=== PATIENT | female | born 1990 | race Caucasian/White ===

== ENCOUNTER 2024-04-09 09:48 | Outpatient (CLI) | payer OTHER, SELFPAY ==
--- NOTE | 2024-04-09 09:52 | US_ITS ---
PROCEDURE: US TRANSVAGINAL CLINICAL INDICATION: endometriosis COMPARISON: US PTV US PELVIS-TRANSVAGINAL ONLY from 10/19/2016 FINDINGS: Transvaginal sonographic images of the pelvis were obtained. UTERUS: Surgically absent The vaginal vault is intact There is a small hyperechoic nodule at the vaginal vault measuring 4.1 mm. There is a cystic fluid collection at the vaginal vault measuring 1.4 cm x 0.72 cm x 0.95 cm LEFT OVARY: 3.5cmx2.7 cmx1.9cm with a volume of 9ml. There are multiple small peripheral follicles. RIGHT OVARY: 4.6 cmx 2.7 cmx2.3cm with a volume of 15ml. There are multiple small peripheral follicles giving the ovary a polycystic appearance. Adjacent to the right ovary is a complex mass measuring 2.5 cm x 1.8 cm x 2.6 cm. Both ovaries are seen and appear normal. Doppler flow to both ovaries are seen. There is no fluid in the cul-de-sac. IMPRESSION: 1. The uterus is surgically absent. The vaginal cuff appears to be intact. There is a small hyperechoic nodule in the vaginal vault measuring 4.1 mm. 2. There is a cystic fluid collection at the vaginal vault measuring 1.4 cm in size. 3. Both ovaries are seen and appear polycystic. 4. Adjacent to the right ovary there appears to be a complex mass measuring 2.5 x 1.8 x 2.6 cm. 5. No fluid in the cul-de-sac. Dictated by: Yandel Roberts MD 04/09/2024 14:14 Yandel Roberts MD in OV 04/09/2024 14:14
== END 2024-04-09 23:59 | disposition home or self-care (01) ==
LOC: RAD 09:50
PROVIDERS: Visit Provider Nurse Practitioner Obstetrics & Gynecology
DX: R10.2 Pelvic and perineal pain (principal); Z90.710 Acquired absence of both cervix and uterus; Z87.42 Personal history of other diseases of the female genital tract
CPT/HCPCS: 76830

== ENCOUNTER 2024-08-01 09:28 | Outpatient (CLI) | payer OTHER, SELFPAY ==
--- OUTSIDE RECORDS SUMMARY | 2024-07-11 09:00 | XMS_ITS | Encounter Summary ---
Author Organization [place] [address] Care Team Providers Care Mold Mover Name Role Phone Oleksandr Mesa MD Primary Care Provider [phone] Reason for Visit * Reason Comments Annual Exam Encounter Details Date Type Department Care Team (Late Contact Info) Description 07/11/2024 9:00 AM EDT Office Visit [facility] [address] [place] [address] Oleksandr Mesa MD [address] [facility] [address] [place] [phone] Annual physical exam (Primary Dx); Screening for thyroid disorder Social History Tobacco Use Types Packs/Day Years Used Date Smoking Tobacco: Every Day Cigarettes 1 20.5 Started: 2004 Smokeless Tobacco: Never Alcohol Use Standard Drinks/Week Comments Yes 0 (1 standard drink = 0.6 oz pur e alcohol) rare PHQ-2 Answer Date Recorded PHQ-2 Total Score 0 07/11/2024 Comments No Sex and Gender Information Value Date Recorded Sex Assigned at Not on file Legal Sex Female 7:11 PM EDT Gender Identity Not on file Sexual Orientation Not on file documented as of this encounter Last Filed Vital Signs Vital Sign Reading Time Taken Comments Blood Pressure 110/70 07/11/2024 8:29 AM EDT Pulse 77 07/11/2024 8:29 AM EDT Temperature 36.5 C (97.7 F) 07/11/2024 8:29 AM EDT Respiratory Rate - - Oxygen Saturation 97% 07/11/2024 8:29 AM EDT Inhaled Oxygen Concentration - - Weight 64.4 kg (142 lb) 07/11/2024 8:29 AM EDT Height 172.7 cm (5' 8 ) 07/11/2024 8:29 AM EDT Body Mass Index 21.59 07/11/2024 8:29 AM EDT documented in this encounter Functional Status * Cognitive and Functional Status Question Answer Date of Assessment Author Is the person deaf or does h e/she have serious difficulty hearing? No 07/11/2024 8:23 AM EDT Diane Cedeno RMA Is the person blind or does he/she have serious difficulty seeing even when wearing glasses? No 07/11/2024 8:23 AM EDT Shelbie Cedeno RM A Does this person have seriou s difficulty walking or climbing stairs? No 07/11/2024 8:23 AM ED T Shelbie Cedeno RMA Does this person have diffic ulty dressing or bathing? No 07/11/2024 8:23 AM EDT Shelbie Cedeno RMA * Is the person deaf or does he/she have serious difficulty hearing? Answer Date of Assessment Author No 07/11/2024 8:23 AM EDT Diane Cedeno RMA * Is the person blind or does he/she have serious difficulty seeing even when wearing glasses? Answer Date of Assessment Author No 07/11/2024 8:23 AM Diane Johnson RMA * Does this person have serious difficulty walking or climbing stairs? Answer Date of Assessment Author No 07/11/2024 8:23 AM EDDiane Dumont RMA * Does this person have difficulty dressing or bathing? Answer Date of Assessment Author No 07/11/2024 8:23 AM EDT Diane Cedeno RMA * Because of a physical, mental or emotional condition, does this person have difficulty doing errands alone such as visiting a doctor's office or shopping? Answer Date of Assessment Author No 07/11/2024 8:23 AM Diane Johnson RMA * PHQ-9 Total Score Answer Date of Assessment Author 0 07/11/2024 8:24 AM SOUMYAT Diane Cedeno RMA * Question Answer Date of Assessment Author Little interest or pleasure in doing things 0 07/11/2024 8:24 AM EDT Shelbie Cedeno RMA Feeling down, depressed, or hopeless 0 06/15 8:24 AM EDT Shelbie Cedeno RMA PHQ-2 Total Score 0 07/11/2024 8:24 AM EDT Shelbie Cedeno RMA * Question Answer Date of Assessment Author Feeling Nervous, Anxious, or on Edge 0 06/15 8:23 AM EDT Shelbie Cedeno RMA Not Being Able to Stop or Co ntrol Worrying 0 07/11/2024 8:23 AM EDT Shelbie Cedeno RMDiane Worrying too Much About Diff erent Things 0 07/11/2024 8:23 AM EDT Shelbie Cedeno RMA Trouble Relaxing 0 07/11/2024 8:23 AM EDT Helena eyers, Shelbie RMA Being so Restless That it is Hard to Sit Still 0 07/11/2024 8:23 AM EDT Shelbie Cedeno RMDiane Becoming Easily Annoyed or Irritable 0 06/15 8:23 AM EDT Shelbie Cedeno RMA Feeling Afraid as if Somethi ng Awful Might Happen 0 07/11/2024 8:23 AM EDT Shelbie Cedeno RMA EDGAR-7 Total Score 0 07/11/2024 8:23 AM EDT Shelbie Cedeno RMA documented as of this encounter Mental Status * Cognitive and Functional Status Question Answer Entry Date Author Because of a physical, menta l or emotional condition, does this person have difficulty doing errands alone such as visiting a doctor's office or shopping? No 07/11/2024 8:23 AM EDT Shelbie Cedeno RMA Because of a physical, menta l or emotional condition, does this person have serious difficulty concentrating, remembering or making decisions? No 07/11/2024 8:23 AM EDT Shelbie Miller RMA * Because of a physical, mental or emotional condition, does this person have serious difficulty concentrating, remembering or making decisions? Answer Entry Date Author No 07/11/2024 8:23 AM EDT Diane Cedeno RMA documented in this encounter Progress Notes * Oleksandr Mesa MD - 07/11/2024 9:00 AM EDT Vitals: 07/11/24 0829 BP: 110/70 Pulse: 77 Temp: 97.7 ??F (36.5 ??C) TempSrc: Temporal SpO2: 97% Weight: 142 lb (64.4 kg) Height: 5' 8 (1.727 m) Body mass index is 21.59 kg/m??. SUBJECTIVE: Chief Complaint Patient presents with Annual Exam HPI: Well Adult: Subjective Ms. Mathews is a 34 y.o. female here for an annual wellness visit. Diet: ok Exercise: some Activities of Daily Living: Functional Level: Self-care ADL Limitations: none Social Interaction Screen: Do you have concerns about issues that may impact social interaction such as developmental or behavioral/mental health conditions? no Health Maintenance Due Topic Date Due Pneumococcal Vaccine 0-49 (1 of 2 - PCV) Never done Hepatitis B Vaccine (1 of 3 - 19+ 3-dose series) Never done Annual Wellness Exam 02/11/2023 COVID-19 Vaccine ( - season) Never done DTaP/TDaP/Td (2 - Td or Tdap) 03/08/2024 Health Maintenance Topic Date Due Pneumococcal Vaccine 0-49 (1 of 2 - PCV) Never done Hepatitis B Vaccine (1 of 3 - 19+ 3-dose series) Never done Annual Wellness Exam 02/11/2023 COVID-19 Vaccine ( - season) Never done DTaP/TDaP/Td (2 - Td or Tdap) 03/08/2024 Influenza Vaccine (Season Ended) 2024 Meningococcal B Vaccine Aged Out Immunization History Administered Date(s) Administered Tdap 03/08/2014 Patient Active Problem List Diagnosis Depression Hypothyroidism due to acquired atrophy of thyroid Tobacco abuse Migraine Insomnia, persistent Right wrist pain Ganglion Cylindroma of skin Past Medical History: Diagnosis Date Depression Hypothyroidism due to acquired atrophy of thyroid 08/22/2014 Post-operative nausea and vomiting mild Past Surgical History: Procedure Laterality Date DENTAL SURGERY top teeth removed 2012 HYSTERECTOMY, TOTAL 2015 ovaries intact PELVIC LAPAROSCOPY for endometriosis WRIST GANGLION EXCISION Right 03/24/2022 right wrist excision of dorsal ganglion cyst; Surgeon: Wesley Prasad MD; Location: [facility]; Service: Hand Allergies Allergen Reactions Latex Rash Current Outpatient Medications on File Prior to Visit Medication Sig Dispense Refill ascorbic acid (VITAMIN C ORAL) Take 500 mg by mouth daily. ferrous sulfate (IRON ORAL) Take by mouth daily. ipratropium (ATROVENT) 42 mcg (0.06 %) Nasl [place], Non-Aerosol 2 Sprays by Nasal route 3 times daily. 13 mL 0 multivitamin with minerals (DAILY MULTIVITAMIN-MINERALS ORAL) Take by mouth daily. Zackery UNABLE TO FIND daily. Med Name: MULLEIN ORAL 500 mg VIT C-ZINC CITRATE-ELDERBERRY ORAL Take by mouth as needed. No current facility-administered medications on file prior to visit. Social History Socioeconomic History Marital status: Spouse name: None Number of children: None Years of education: None Highest education level: None Tobacco Use Smoking status: Every Day Current packs/day: 1.00 Average packs/day: 1 pack/day for 20.4 years (20.4 ttl pk-yrs) Types: Cigarettes Start date: 2004 Smokeless tobacco: Never Vaping Use Vaping status: Former Substance and Sexual Activity Alcohol use: Yes Comment: rare Drug use: No Family History Problem Relation Age of Onset High Blood Pressure Mother Migraines Mother Cancer Maternal Uncle Cancer Maternal Grandmother High Blood Pressure Maternal Grandmother Migraines Maternal Grandmother High Blood Pressure Maternal Grandfather Stroke Paternal Grandfather Anesth Problems Neg Hx No results found. No results found for this visit on 07/11/24. Patient Care Team: Oleksandr Mesa MD as PCP - General Lab Results Component Value Date WBC 8.5 12/01/2023 HGB 14.1 12/01/2023 HCT 42.8 12/01/2023 PLT 314 12/01/2023 CHOLESTEROL 185 12/01/2023 TRIG 78 12/01/2023 HDL 38 (L) 12/01/2023 LDLCALC 132 (H) 12/01/2023 ALT 22 12/01/2023 AST 16 12/01/2023 NA 139 12/01/2023 K 3.4 (L) 12/01/2023 CL 103 12/01/2023 CREATININE 0.86 12/01/2023 BUN 7 12/01/2023 CO2 25 12/01/2023 TSH 0.557 01/07/2020 INR 1.1 01/27/2010 GLU 96 12/01/2023 TSHREFLEX 0.946 12/01/2023 Additional issues addressed today: Review of Systems Constitutional: Negative for activity change, appetite change, fatigue and fever. HENT: Negative for facial swelling, trouble swallowing and voice change. Respiratory: Negative for cough, chest tightness, shortness of breath and wheezing. Cardiovascular: Negative for chest pain, palpitations and leg swelling. Endocrine: Negative for cold intolerance and heat intolerance. Genitourinary: Negative for difficulty urinating and frequency. Musculoskeletal: Negative for arthralgias, joint swelling and neck stiffness. Skin: Negative for color change and rash. Neurological: Negative for dizziness, speech difficulty, weakness and light-headedness. Psychiatric/Behavioral: Negative for agitation, confusion, hallucinations and suicidal ideas. The patient is not nervous/anxious. OBJECTIVE: Physical Exam Vitals and nursing note reviewed. Constitutional: Appearance: She is well-developed. HENT: Head: Normocephalic and atraumatic. Nose: Nose normal. Eyes: Conjunctiva/sclera: Conjunctivae normal. Pupils: Pupils are equal, round, and reactive to light. Neck: Thyroid: Thyromegaly present. No thyroid mass or thyroid tenderness. Cardiovascular: Rate and Rhythm: Normal rate and regular rhythm. Heart sounds: Normal heart sounds. No murmur heard. Pulmonary: Effort: Pulmonary effort is normal. Breath sounds: Normal breath sounds. No stridor. Abdominal: General: There is no distension. Palpations: Abdomen is soft. Tenderness: There is no abdominal tenderness. Musculoskeletal: General: Normal range of motion. Cervical back: Normal range of motion. Right lower leg: No edema. Left lower leg: No edema. Comments: Moves all 4 extremities well Skin: General: Skin is warm. Findings: No rash. Comments: Normal nails Neurological: General: No focal deficit present. Mental Status: She is alert and oriented to person, place, and time. Mental status is at baseline. Psychiatric: Mood and Affect: Mood normal. Behavior: Behavior normal. Assessment & Plan Annual physical exam Discussed with patient Blood work today Follow up one year Orders: COMPREHENSIVE METABOLIC PANEL; Future CBC WITH DIFF; Future LIPID PANEL REFLEX; Future THYROID STIMULATING HORMONE; Future IRON LEVEL; Future MAGNESIUM LEVEL; Future Screening for thyroid disorder Blood work today Orders: THYROID STIMULATING HORMONE; Future T4, FREE (THYROXINE); Future Shelbie Barker, RMA, am functioning as the scribe for, and as dictated by Oleksandr Mesa MD Login: 07/11/24, 8:43 AM I have reviewed this note and it acurately reflects my work and decisions made during this visit. Oleksandr Mesa MD * Reny Burris - 07/11/2024 9:00 AM EDT Venous collection 21 G x 1-1/4 Attempt x 1 RAC Patient tolerated well documented in this encounter Plan of Treatment Not on file documented as of this encounter Goals Goal Patient Goal Type Associated Problems Recent Progress Patient-Stated? Author Maintain a healthy diet, exercise regularly and maintain an ideal body weight General No Maryellen Tapia MA Stay Tobacco Free Lifestyle No Maryellen Tapia MA documented as of this encounter Procedures Procedure Name Priority Date/Time Associated Diagnosis Comments LIPID PANEL REFLEX Routine 07/11/2024 8: 43 AM EDT Annual physical exam CBC WITH DIFF Routine 07/11/2024 8:43 AM EDT Annual physical exam THYROID STIMULATING HORMONE Routine 07/11/2024 8:43 AM EDT Annual physical exam Screening for thyroid disorder T4, FREE (THYROXINE) Routine 07/11/2024 8:43 AM EDT Screening for thyroid disorder MAGNESIUM LEVEL Routine 07/11/2024 8:43 AM EDT Annual physical exam IRON LEVEL Routine 07/11/2024 8:43 AM EDT Annual physical exam COMPREHENSIVE METABOLIC PANEL Routine 07/11/2024 8:43 AM EDT Annual physical exam documented in this encounter Results * MAGNESIUM LEVEL (07/11/2024 8:43 AM EDT) Magnesium 2.1 1.6 - 2.4 mg/dL 07/11/2024 1:14 PM EDT [facility] [employer] Blood VENOUS BLOOD / Unknown Venipuncture / Unknown 07/11/2024 8:43 AM EDT 07/11/2024 8:43 AM EDT Oleksandr Mesa MD CHEMISTRY ORDERABLES Final R esult Performing Organization Address [facility] Co de Phone Number [facility] [employer] [address] [place] [address] , [place] [address] * IRON LEVEL (07/11/2024 8:43 AM EDT) Iron 41 30 - 160 mcg/dL 07/11/2024 1:14 PM EDT [facility] [employer] Blood VENOUS BLOOD / Unknown Venipuncture / Unknown 07/11/2024 8:43 AM EDT 07/11/2024 8:43 AM EDT Oleksandr Mesa MD CHEMISTRY ORDERABLES Final R esult Performing Organization Address [facility] de Phone Number [facility] [employer] [address] , [place] [address] * T4, FREE (THYROXINE) (07/11/2024 8:43 AM EDT) Free T4 1.07 0.80 - 1.80 ng/dL 07/11/2024 1:14 PM EDT [facility] [employer] Blood VENOUS BLOOD / Unknown Venipuncture / Unknown 07/11/2024 8:43 AM EDT 07/11/2024 8:43 AM EDT Narrative [facility] [employer] - 07/11/2024 1:14 PM EDT Ingestion of tor doses of biotin (>5 mg/day) taken within 8 hours of drawing blood sample can interfere with this immunoassay test. Oleksandr Mesa MD CHEMISTRY ORDERABLES Final R [facility] Performing Organization Address [facility] de Phone Number [facility], [address] , [place] [address] * THYROID STIMULATING HORMONE (07/11/2024 8:43 AM EDT) Pathologist [facility] TSH 0.977 0.270 - 4.200 mcIU/mL 07/11/2024 1:14 PM EDT [facility] [employer] Blood VENOUS BLOOD / Unknown Venipuncture / Unknown 07/11/2024 8:43 AM EDT 07/11/2024 8:43 AM EDT Narrative [facility] [employer] [facility] - 07/11/2024 1:14 PM EDT Ingestion of tor doses of biotin (>5 mg/day) taken within 8 hours of drawing blood sample can interfere with this immunoassay test. us Oleksandr Mesa MD CHEMISTRY ORDERABLES Final R esult [facility] [employer] [address] , [place] [address] * (ABNORMAL) LIPID PANEL REFLEX (07/11/2024 8:43 AM EDT) [facility] Cholesterol 153 <200 mg/dL 07/11/2024 1:14 PM EDT [facility] Comment: < 200 Desirable 200 - 239 Borderline High >= 240 High Triglyceride 96 <150 mg/dL 07/11/2024 1:14 PM EDT [facility] Comment: < 150 Normal 150 - 199 Borderline High 200 - 499 High >= 500 Very High HDL 33(L) >=40 mg/dL 07/11/2024 1:14 PM EDT [facility] Comment: > 60 Optimal 40 - 60 Acceptable < 40 Low LDL Calculated 102(H) <100 mg/dL 07/11/2024 1:14 PM EDT [facility] Comment: < 100 Optimal 100 - 129 Near or above optimal 130 - 159 Borderline High 160 - 189 High >= 190 Very High The National Institutes of Health (NIH) equation is used for all lipid panels that report calculated LDL (LDL-C). Non-HDL-C Calculated 120 <=129 mg/dL 07/11/2024 1:14 PM EDT [facility] Comment: <130 Desirable 130-159 Above Desirable 160-189 Borderline High 190-219 High >= 220 Very High Fasting Specimen? Yes None 025 1:14 PM EDT [facility] Blood VENOUS BLOOD / Unknown Venipuncture / Unknown 07/11/2024 8:43 AM EDT 07/11/2024 8:43 AM EDT us Oleksandr Mesa MD CHEMISTRY ORDERABLES Final R esult [facility] [address] [facility] , [place] [address] * (ABNORMAL) CBC WITH DIFF (07/11/2024 8:43 AM EDT) WBC 10.3 3.7 - 10.3 x10(3)/mcL 07/11/2024 12:04 PM EDT [facility] RBC 4.55 3.90 - 5.20 x10(6)/mcL 07/11/2024 12:04 PM EDT [facility] Hgb 13.3 11.2 - 15.7 g/dL 07/11/2024 12:04 PM EDT [facility] Hct 41.1 34.0 - 45.0 % 07/11/2024 12:04 PM EDT [facility] MCV 90.3 80.0 - 100.0 fL 07/11/2024 12:04 PM EDT [facility] MCH 29.2 26.0 - 34.0 pg 07/11/2024 12:04 PM EDT [facility] MCHC 32.4 30.7 - 35.5 g/dL 07/11/2024 12:04 PM EDT [facility] RDW 12.5 <=14.9 % 07/11/2024 12:04 PM EDT [facility] Platelet 319 155 - 369 x10(3)/mcL 07/11/2024 12:04 PM EDT [facility] MPV 9.8 8.8 - 12.5 fL 07/11/2024 12:04 PM EDT [facility] Neut Percent 67.4 % 07/11/2024 12:04 PM EDT [facility] Comment:Neutrophils equals s egs plus bands Imm Gran% 0.4 % 07/11/2024 12:04 PM EDT [facility] Comment:Automated count of m etamyelocytes, myelocytes and promyelocytes. Lymph Percent 24.5 % 07/11/2024 12:04 PM EDT [facility] [place] Percent 5.3 % 07/11/2024 12:04 PM EDT [facility] Eos Percent 1.9 % 07/11/2024 12:04 PM EDT [facility] Baso Percent 0.5 % 07/11/2024 12:04 PM EDT [facility] Neut # 6.9(H) 1.6 - 6.1 x10(3)/[facility] 07/11/2024 12:04 PM EDT [facility] Comment:Neutrophils equals s egs plus bands IMMGRAN# 0.0 0.0 - 0.1 x10(3)/mcL 07/11/2024 12:04 PM EDT [facility] Comment:Automated count of m etamyelocytes, myelocytes and promyelocytes. An absolute IG <0.1 is reported as 0.0. Lymph # 2.5 1.2 - 3.9 x10(3)/mcL 07/11/2024 12:04 PM EDT [facility] [place] # 0.5 0.3 - 0.9 x10(3)/[facility] 07/11/2024 12:04 PM EDT [facility] Eos# 0.2 0.0 - 0.5 x10(3)/[facility] 07/11/2024 12:04 PM EDT [facility] Baso # 0.1 0.0 - 0.1 x10(3)/[facility] 07/11/2024 12:04 PM EDT [facility] Blood VENOUS BLOOD / Unknown Venipuncture / Unknown 07/11/2024 8:43 AM EDT 07/11/2024 8:43 AM EDT us Oleksandr Mesa MD HEMATOLOGY ORDERABLES Final Result [facility] [address] [facility] , [place] [address] * (ABNORMAL) COMPREHENSIVE METABOLIC PANEL (07/11/2024 8:43 AM EDT) Sodium 139 136 - 145 mmol/L 07/11/2024 1:14 PM EDT [facility] Potassium 3.8 3.5 - 5.0 mmol/L 07/11/2024 1:14 PM EDT [facility] Chloride 104 98 - 107 mmol/L 07/11/2024 1:14 PM EDT [facility] Total CO2 28 22 - 29 mmol/L 07/11/2024 1:14 PM EDT [facility] Anion Gap 7 7 - 16 mmol/L 07/11/2024 1:14 PM EDT [facility] Calcium 9.4 8.6 - 10.4 mg/dL 07/11/2024 1:14 PM EDT [facility] Glucose Lvl 97 70 - 99 mg/dL 07/11/2024 1:14 PM EDT [facility] BUN 4(L) 6 - 20 mg/dL 07/11/2024 1:14 PM EDT [facility] Creatinine 0.77 0.51 - 1.30 mg/dL 07/11/2024 1:14 PM EDT [facility] Albumin 4.4 3.5 - 5.2 gm/dL 07/11/2024 1:14 PM EDT [facility] Total Protein 6.9 6.4 - 8.3 gm/dL 07/11/2024 1:14 PM EDT [facility] Bili Total 0.3 0.2 - 1.3 mg/dL 07/11/2024 1:14 PM EDT [facility] ALT 11 <=41 U/L 07/11/2024 1:14 PM EDT [facility] AST 14 <=40 U/L 07/11/2024 1:14 PM EDT [facility] Alk Phos 67 36 - 123 U/L 07/11/2024 1:14 PM EDT [facility] eGFR (CKD-EPIcr 2020) 103 >=60 mL/min/1.7 3 m2 07/11/2024 1:14 PM EDT [facility] Comment:Estimated GFR was ca lculated using the CKD-EPIcr (2020) equation refit without race. The equation is recommended by the National Kidney Foundation - [place] [employer] Neph[employer] Task Force. Blood VENOUS BLOOD / Unknown Venipuncture / Unknown 07/11/2024 8:43 AM EDT 07/11/2024 8:43 AM EDT us Oleksandr Mesa MD CHEMISTRY ORDERABLES Final R esult [facility] [address], [place] [address] documented in this encounter Visit Diagnoses Diagnosis Annual physical exam- Primary Routine general medical examination at a health care facility Screening for thyroid disorder documented in this encounter Discontinued Medications Medication Sig Discontinue Reason Start Date End Da te oxyCODONE (ROXICODONE) 5 mg Oral Tablet Take 1 Tablet by mouth every 4 hours as needed for Major Surgery/Trauma (G89.18). DELETE-Therapy completed 12/08/2023 07/11/2024 ondansetron (ZOFRAN) 4 mg Oral TabletIndications:Viral gastroenteritis Take 1 Tablet by mouth every 6 hours as needed for Nausea for up to 10 doses. DELETE-Therapy completed 11/30/2023 07/11/2024 documented as of this encounter Care Teams Mold Mover Relationship Specialty Start Date End Date Oleksandr Mesa MD [address] [place] [address] [place] [phone] PCP - General 10/08/09 documented as of this encounter
--- NOTE | 2024-08-01 09:30 | US_ITS ---
PROCEDURE: US TRANSVAGINAL CLINICAL INDICATION: 3 month f/u on right ovarian cyst COMPARISON: US PTV US PELVIS-TRANSVAGINAL ONLY from 10/19/2016 US US TRANSVAGINAL from 04/09/2024 FINDINGS: Transvaginal sonographic images of the pelvis were obtained. UTERUS: The uterus has been surgically removed. There continues to be a small hyperechoic area at the vaginal vault that measures 3.4 mm in size. The vaginal vault is intact. LEFT OVARY: 2.8 cmx2 1.9 cmx2.8cm with a volume of 7.9ml. There is a dominant follicle in the left ovary that measures 1.7 cm x 1.3 cm x 1.0 cm. RIGHT OVARY: 2.4cmx 2.0mx2.0cm with a volume of 4.7ml. There are multiple small peripheral follicles. The previously described complex cyst cystic area is no longer seen. Both ovaries are seen and appear normal. Doppler flow to both ovaries are seen. There is no fluid in the cul-de-sac. IMPRESSION: 1. The uterus has been surgically removed. The vaginal vault is intact. 2. There continues to be a small hyperechoic area at the vaginal vault that measures 4.5 mm. 3. The left ovary contains a 1.7 cm follicle. The right ovary appears normal. 4. The previously described complex mass in the right ovary is no longer seen. 5. No fluid in the cul-de-sac. Dictated by: Yandel Roberts MD 08/01/2024 12:41 Yandel Roberts MD in OV 08/01/2024 12:41
--- OUTSIDE RECORDS SUMMARY | 2024-08-01 09:31 | XMS_ITS | Encounter Summary ---
Author Organization [place] [address] Care Team Providers Care Proof Machine Operator Name Role Phone Oleksandr Mesa MD Primary Care Provider [phone] Reason for Visit * Reason Onset Date Comments Symptoms (Only Use If Pt Pus hes Back On Scheduling A Visit) 07/18/2024 possible sinus infection- de clined appt- asking for meds to be called in.Please advise. Encounter Details Date Type Department Care Team (Late st Contact Info) Description 07/18/2024 Telephone [facility] [place] [employer] [address] [place] [address] Oleksandr Mesa MD [address] [place] [address] [place] [phone] Symptoms (Only Use If Pt Pushes Back On Scheduling A Visit) (possible sinus infection- declined appt- asking for meds to be called in.Please advise.) Social History Tobacco Use Types Packs/Day Years [...] on file documented as of this encounter Functional Status * Is the person deaf or does he/she have serious difficulty hearing? Answer Date of Assessment Author No 07/11/2024 8:23 AM EDT Diane Cedeno RMA * Is the person blind or does he/she have serious difficulty seeing even when wearing glasses? Answer Date of Assessment Author No 07/11/2024 8:23 AM EDT Diane Cedeno RMA * Does this person have serious difficulty walking or climbing stairs? Answer Date of Assessment Author No 07/11/2024 8:23 AM EDT Diane Cedeno RMA * Does this person have difficulty dressing or bathing? Answer Date of Assessment Author No 07/11/2024 8:23 AM EDT Diane Cedeno RMA * Because of a physical, mental or emotional condition, does this person have difficulty doing errands alone such as visiting a doctor's office or shopping? Answer Date of Assessment Author No 07/11/2024 8:23 AM EDT Diane Cedeno RMA documented as of this encounter Mental Status * Because of a physical, mental or emotional condition, does this person have serious difficulty concentrating, remembering or making decisions? Answer Entry Date Author No 07/11/2024 8:23 AM EDT Diane Cedeno RMA documented in this encounter Miscellaneous Notes * Telephone Encounter - Shelbie Cedeno RMA - 07/18/2024 2:49 PM EDT Left message on voice mail otc * Telephone Encounter - Oleksandr Mesa MD - 07/18/2024 11:11 AM EDT Otc cold / sinus meds * Telephone Encounter - Farrah Mitchell - 07/18/2024 10:39 AM EDT Select the most appropriate reason for this telephone message: Symptoms Call Who is reporting the symptoms: Patient What symptom(s) is the patient experiencing: sore throat, drainage (yellow/green mucus) How long have symptoms been present: 2 day(s) ago Has the patient been seen for this:No If no, was an appointment/E-Visit offered/suggested? Yes, offered appt, but pt declined. She stated they're leaving for vacation tomorrow night and not sure she can come in before then Has the patient tried anything to relieve the symptoms and did it help: No If pain, what level on scale 1-10 (10 being the greatest): No pain Desired Outcome: RX or suggestions of OTC meds Pharmacy & Location: [facility] [address] [place] [address] [phone] [facility] [phone] Return Method of Communication: Phone Call Was patient transferred to Nurse Triage for additional help? N/A Additional Information: please advise documented in this encounter Plan of Treatment Not on file documented as of this encounter Goals Goal Patient Goal Type Associated Problems Recent Progress Patient-Stated? Author Maintain a healthy diet, exercise regularly and maintain an ideal body weight General No Maryellen Tapia MA Stay Tobacco Free Lifestyle No Maryellen Tapia MA documented as of this encounter Visit Diagnoses Not on filedocumented in this encounter Care Teams Proof Machine Operator Relationship Specialty Start Date End Date Oleksandr Mesa MD [address] [place] [phone] PCP - General 10/08/09 documented as of this encounter
--- OUTSIDE RECORDS SUMMARY | 2024-08-01 09:31 | XMS_ITS | Clinical Summary ---
Author Organization [facility] Address [address] [place] [address] Phone Care Team Providers Care Hearing Stenographer Name Role Phone Oleksandr Mesa MD Primary Care Provider [phone] Allergies Active Allergy Reactions Criticality Noted Date Comments Latex Rash 12/01/2023 Medications multivitamin with minerals (DAILY MULTIVITAMIN-IL NERALS ORAL) Take by mouth daily. Gummy Active ferrous sulfate (IRON ORAL) Take by mouth daily. Active UNABLE TO FIND daily. Med Name: MULLEIN ORAL 500 mg Active VIT C-ZINC CITRATE-ELDERBE RRY ORAL Take by mouth as needed. Active ascorbic acid (VITAMIN C ORAL) Take 500 mg by mouth daily. Active ipratropium (ATROVENT) 42 mcg (0.06 %) Nasl [place], Non-AerosolIndi cations:Acute bacterial sinusitis 2 Sprays by Nasal route 3 times daily. 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 Right wrist pain 02/26/2022 Overview (02/26/2022): Added automatically from request for surgery [id number] Ganglion 02/26/2022 Overview (02/26/2022): Added automatically from request for surgery [id number] Insomnia, persistent 01/07/2020 Hypothyroidism due to acquired atrophy of thyroi d 08/22/2014 Tobacco abuse 08/22/2014 Migraine 08/22/2014 Depression Resolved Problems Problem Noted Date Diagnosed Date Resolved Date labor 12/19/2013 08/22/2014 34 weeks gestation of 12/19/2013 08/22/2014 Current smoker 12/19/2013 08/22/2014 History of delivery, currently 12/19/2013 08/22/2014 Encounters Date Type Department Care Team Description 07/18/[address] [address] Oleksandr Mesa MD Symptoms (Only Use If Pt Pushes Back On Scheduling A Visit) (possible sinus infection- declined appt- asking for meds to be called in.Please advise.) 07/11/2024 9:00 AM EDT Office Visit [facility] [address] [place] [address] Oleksandr Mesa MD Annual physical exam (Primary Dx); Screening for thyroid disorder 07/11/2024 Results Follow-Up [address] [phone] Oleksandr Mesa MD COMPREHENSIVE METABOLIC PANEL, CBC WITH DIFF, LIPID PANEL REFLEX, Additional followed-up results: 4 from Last 3 Months Immunizations Immunization Administration Dates Next Due Tdap 03/08/2014 Surgical History Surgery Date Site/Laterality Comments DENTAL SURGERY top teeth removed 2011 PELVIC LAPAROSCOPY for endometriosis WRIST GANGLION EXCISION 03/24/2022 Hand/Wrist/Right right wrist excision of dorsal ganglion cyst; Surgeon: Wesley Prasad MD; Location: [facility]; Service: Hand HYSTERECTOMY, TOTAL 02/14/2014 - 02/13/2015 ovaries intact Medical History Medical History Date Comments Depression Hypothyroidism due to acquired atrophy of thyroi d 08/22/2014 Post-operative nausea and vomiting mild Family History Medical History Relation Name Comments High Blood Pressure Maternal Grandfather Cancer Maternal Grandmother High Blood Pressure Maternal Grandmother Migraines Maternal Grandmother Cancer Maternal Uncle High Blood Pressure Mother Migraines Mother Stroke Paternal Grandfather Anesth Problems Neg Hx Relation Name Status Comments Maternal Grandfather Maternal Grandmother Maternal Uncle Mother Paternal Grandfather Social History Tobacco Use Types Packs/Day Years Used Date Smoking Tobacco: Every Day Cigarettes 1 20.5 Started: 2004 Smokeless Tobacco: Never Tobacco Cessation:Ready to Q uit: No; Counseling Given: No Alcohol Use Standard Drinks/Week Comments Yes 0 (1 standard drink = 0.6 oz pur e alcohol) rare PHQ-2 Answer Date Recorded PHQ-2 Total Score 0 07/11/2024 Comments No Sex and Gender Information Value Date Recorded Sex Assigned at Not on file Legal Sex Female 7:11 PM EDT Gender Identity Not on file Sexual Orientation Not on file Obstetrics History Para Term AB IAB SAB Ectopic Multiple Livin g Live Births 3 1 1 1 1 1 Date Outcome GA Total Labor Labor/2nd/3rd Weight Sex Type Anes PTL Kim A1 A5 Name Clin 2007 SAB 6w0d Comments:no D&C 010 35w0 d 4h 00m/ 5 lb 8 oz (2.495 kg) M Vag-S pont Comments:precipitous a fter 1 week hosp stay for PTL Last Filed Vital Signs Vital Sign Reading Time Taken Comments Blood Pressure 110/70 07/11/2024 8:29 AM EDT Pulse 77 07/11/2024 8:29 AM EDT Temperature 36.5 C (97.7 F) 07/11/2024 8:29 AM EDT Respiratory Rate 18 01/23/2024 5:58 PM EST Oxygen Saturation 97% 07/11/2024 8:29 AM EDT Inhaled Oxygen Concentration - - Weight 64.4 kg (142 lb) 07/11/2024 8:29 AM EDT Height 172.7 cm (5' 8 ) 07/11/2024 8:29 AM EDT Body Mass Index 21.59 07/11/2024 8:29 AM EDT Plan of Treatment Health Maintenance Due Date Last Done Comments Hepatitis B Vaccine (1 of 3 - 19+ 3-dose series) 2008 Pneumococcal Vaccine 0-49 (1 of 2 - PCV) 2008 COVID-19 Vaccine (2023-2 5 season) 2023 DTaP/TDaP/Td (2 - Td or Tdap) 03/08/2024 03/08/2014 Influenza Vaccine (Season Ended) 2024 10/30/2015 (Postponed), 02/10/2015 (Declined), 05/02/2014 (Declined) Annual Wellness Exam 07/11/2025 07/11/2024 Meningococcal B Vaccine Aged Out No l onger eligible based on patient's age to complete this topic Goals Goal Patient Goal Type Associated Problems Recent Progress Patient-Stated? Author Maintain a healthy diet, exercise regularly and maintain an ideal body weight General No Maryellen Tapia MA Stay Tobacco Free Lifestyle No Maryellen Tapai MA Procedures Procedure Name Priority Date/Time Associated Diagnosis Comments MAGNESIUM LEVEL Routine 07/11/2024 8:43 AM EDT Annual physical exam IRON LEVEL Routine 07/11/2024 8:43 AM EDT Annual physical exam T4, FREE (THYROXINE) Routine 07/11/2024 8:43 AM EDT Screening for thyroid disorder THYROID STIMULATING HORMONE Routine 07/11/2024 8:43 AM EDT Annual physical exam Screening for thyroid disorder LIPID PANEL REFLEX Routine 07/11/2024 8: 43 AM EDT Annual physical exam CBC WITH DIFF Routine 07/11/2024 8:43 AM EDT Annual physical exam COMPREHENSIVE METABOLIC PANEL Routine 07/11/2024 8:43 AM EDT Annual physical exam from Last 3 Months Results * (ABNORMAL) LIPID PANEL REFLEX (07/11/2024 8:43 AM EDT) Cholesterol 153 <200 mg/dL 07/11/2024 1:14 PM EDT [facility] [employer] Comment: < 200 Desirable 200 - 239 Borderline High >= 240 High Triglyceride 96 <150 mg/dL 07/11/2024 1:14 PM EDT [facility] [employer] Comment: < 150 Normal 150 - 199 Borderline High 200 - 499 High >= 500 Very High HDL 33(L) >=40 mg/dL 07/11/2024 1:14 PM EDT [facility] [employer] Comment: > 60 Optimal 40 - 60 Acceptable < 40 Low LDL Calculated 102(H) <100 mg/dL 07/11/2024 1:14 PM EDT [facility] [employer] Comment: < 100 Optimal 100 - 129 Near or above optimal 130 - 159 Borderline High 160 - 189 High >= 190 Very High The National Institutes of Health (NIH) equation is used for all lipid panels that report calculated LDL (LDL-C). Non-HDL-C Calculated 120 <=129 mg/dL 07/11/2024 1:14 PM EDT [facility] [employer] [employer] Comment: <130 Desirable 130-159 Above Desirable 160-189 Borderline High 190-219 High >= 220 Very High Fasting Specimen? Yes None 025 1:14 PM EDT [facility] [employer] Blood VENOUS BLOOD / Unknown Venipuncture / Unknown 07/11/2024 8:43 AM EDT 07/11/2024 8:43 AM EDT us Oleksandr Mesa MD CHEMISTRY ORDERABLES Final R esult [facility] [employer] [address] [facility] , [place] [address] * (ABNORMAL) CBC WITH DIFF (07/11/2024 8:43 AM EDT) WBC 10.3 3.7 - 10.3 x10(3)/mcL 07/11/2024 12:04 PM EDT [facility] RBC 4.55 3.90 - 5.20 x10(6)/mcL 07/11/2024 12:04 PM EDT [facility] Hgb 13.3 11.2 - 15.7 g/dL 07/11/2024 12:04 PM EDT [facility] [employer] Hct 41.1 34.0 - 45.0 % 07/11/2024 12:04 PM EDT [facility] MCV 90.3 80.0 - 100.0 fL 07/11/2024 12:04 PM EDT [facility] MCH 29.2 26.0 - 34.0 pg 07/11/2024 12:04 PM EDT [facility] MCHC 32.4 30.7 - 35.5 g/dL 07/11/2024 12:04 PM EDT [facility] RDW 12.5 <=14.9 % 07/11/2024 12:04 PM EDT [facility] Platelet 319 155 - 369 x10(3)/mcL 07/11/2024 12:04 PM EDT [facility] MPV 9.8 8.8 - 12.5 fL 07/11/2024 12:04 PM EDT [facility] Neut Percent 67.4 % 07/11/2024 12:04 PM EDT [facility] Comment:Neutrophils equals s egs plus bands Imm Gran% 0.4 % 07/11/2024 12:04 PM EDT [facility] Comment:Automated count of m etamyelocytes, myelocytes and promyelocytes. Lymph Percent 24.5 % 07/11/2024 12:04 PM EDT [facility] Waldo Percent 5.3 % 07/11/2024 12:04 PM EDT [facility] Eos Percent 1.9 % 07/11/2024 12:04 PM EDT [facility] Baso Percent 0.5 % 07/11/2024 12:04 PM EDT [facility] Neut # 6.9(H) 1.6 - 6.1 x10(3)/mcL 07/11/2024 12:04 PM EDT [facility] Comment:Neutrophils equals s egs plus bands IMMGRAN# 0.0 0.0 - 0.1 x10(3)/mcL 07/11/2024 12:04 PM EDT [facility] Comment:Automated count of m etamyelocytes, myelocytes and promyelocytes. An absolute IG <0.1 is reported as 0.0. Lymph # 2.5 1.2 - 3.9 x10(3)/mcL 07/11/2024 12:04 PM EDT [facility] [place] # 0.5 0.3 - 0.9 x10(3)/mcL 07/11/2024 12:04 PM EDT [facility] Eos# 0.2 0.0 - 0.5 x10(3)/mcL 07/11/2024 12:04 PM EDT [facility] Baso # 0.1 0.0 - 0.1 x10(3)/[facility] 07/11/2024 12:04 PM EDT [facility] Blood VENOUS BLOOD / Unknown Venipuncture / Unknown 07/11/2024 8:43 AM EDT 07/11/2024 8:43 AM EDT Oleksandr Mesa MD HEMATOLOGY ORDERABLES Final Result Performing Organization Address [facility] de Phone Number [address] , [place] [address] * THYROID STIMULATING HORMONE (07/11/2024 8:43 AM EDT) TSH 0.977 0.270 - 4.200 mcIU/mL 07/11/2024 1:14 PM EDT [facility] Blood VENOUS BLOOD / Unknown Venipuncture / Unknown 07/11/2024 8:43 AM EDT 07/11/2024 8:43 AM EDT Narrative [facility] - 07/11/2024 1:14 PM EDT Ingestion of tor doses of biotin (>5 mg/day) taken within 8 hours of drawing blood sample can interfere with this immunoassay test. Oleksandr Mesa MD CHEMISTRY ORDERABLES Final R esult Performing Organization Address [facility] de Phone Number [facility] , [place] [address] * T4, FREE (THYROXINE) (07/11/2024 8:43 AM EDT) Free T4 1.07 0.80 - 1.80 ng/dL 07/11/2024 1:14 PM EDT [facility] Blood VENOUS BLOOD / Unknown Venipuncture / Unknown 07/11/2024 8:43 AM EDT 07/11/2024 8:43 AM EDT Narrative [facility] - 07/11/2024 1:14 PM EDT Ingestion of tor doses of biotin (>5 mg/day) taken within 8 hours of drawing blood sample can interfere with this immunoassay test. us Oleksandr Mesa MD CHEMISTRY ORDERABLES Final R esult Performing Organization Address City/[facility]/ZIP Co de Phone Number [facility] [address] [facility] , [place] [address] * MAGNESIUM LEVEL (07/11/2024 8:43 AM EDT) Magnesium 2.1 1.6 - 2.4 mg/dL 07/11/2024 1:14 PM EDT [facility] Blood VENOUS BLOOD / Unknown Venipuncture / Unknown 07/11/2024 8:43 AM EDT 07/11/2024 8:43 AM EDT us Oleksandr Mesa MD CHEMISTRY ORDERABLES Final R esult Performing Organization Address [facility] Co de Phone Number [facility] [employer], [facility] [address] [facility] , [place] [address] * IRON LEVEL (07/11/2024 8:43 AM EDT) Iron 41 30 - 160 mcg/dL 07/11/2024 1:14 PM EDT [facility] [employer] Blood VENOUS BLOOD / Unknown Venipuncture / Unknown 07/11/2024 8:43 AM EDT 07/11/2024 8:43 AM EDT us Oleksandr Mesa MD CHEMISTRY ORDERABLES Final R esult Performing Organization Address [facility] Co de Phone Number [facility] [facility] [address] [facility] , [place] [address] * (ABNORMAL) COMPREHENSIVE METABOLIC PANEL (07/11/2024 8:43 [...] 07/11/2024 1:14 PM EDT [facility] Anion Gap 7 7 - 16 mmol/L 07/11/2024 1:14 PM EDT [facility] Calcium 9.4 8.6 - 10.4 mg/dL 07/11/2024 1:14 PM EDT [facility] Glucose Lvl 97 70 - 99 mg/dL 07/11/2024 1:14 PM EDT [facility] BUN 4(L) 6 - 20 mg/dL 07/11/2024 1:14 PM EDT [facility] Creatinine 0.77 0.51 - 1.30 mg/dL 07/11/2024 1:14 PM EDT [facility] Albumin 4.4 3.5 - 5.2 gm/dL 07/11/2024 1:14 PM EDT [facility] Total Protein 6.9 6.4 - 8.3 gm/dL 07/11/2024 1:14 PM EDT [facility] Bili Total 0.3 0.2 - 1.3 mg/dL 07/11/2024 1:14 PM EDT [facility] ALT 11 <=41 U/L 07/11/2024 1:14 PM EDT [facility] AST 14 <=40 U/L 07/11/2024 1:14 PM EDT [facility] Alk Phos 67 36 - 123 U/L 07/11/2024 1:14 PM EDT [facility] eGFR (CKD-EPIcr 2020) 103 >=60 mL/min/1.7 3 m2 07/11/2024 1:14 PM EDT [facility] Comment:Estimated GFR was ca lculated using the CKD-EPIcr (2020) equation refit without race. The equation is recommended by the National Kidney Foundation - [place] [employer] Neph[employer] Task Force. Blood VENOUS BLOOD / Unknown Venipuncture / Unknown 07/11/2024 8:43 AM EDT 07/11/2024 8:43 AM EDT us Oleksandr Mesa MD CHEMISTRY ORDERABLES Final R esult [facility] [address] [facility] , [place] [address] from Last 3 Months Insurance CHOICE PLUS CHOICE PLUS CHOICE PLUS Advance Directives For more information, please contact: [phone] * Full Code (Latest Code Status on File) Date Activated Date Inactivated Comments 12/19/2013 1:41 AM 12/19/2013 2:09 PM Care Teams Hearing Stenographer Relationship Specialty Start Date End Date Olkesandr Mesa MD [address] [place] [phone] PCP - General 10/08/09
--- OUTSIDE RECORDS SUMMARY | 2024-08-01 09:31 | XMS_ITS | Encounter Summary ---
Author Organization [place] [address] Care Team Providers Care Automation Test Developer Name Role Phone Oleksandr Mesa MD Primary Care Provider [phone] Encounter Details Date Type Department Care Team (Late st Contact Info) Description 07/11/2024 Results Follow-Up [facility] [address] [place] [address] Oleksandr Mesa MD [address] [facility] [address] [place] [address] COMPREHENSIVE METABOLIC PANEL, CBC WITH DIFF, LIPID PANEL REFLEX, Additional followed-up results: 4 Social History Tobacco Use Types Packs/Day Years [...] as of this encounter Functional Status * Cognitive and Functional Status Question Answer Date of Assessment Author Is the person deaf or does h e/she have serious difficulty hearing? No 07/11/2024 8:23 AM EDT Diane Cedeno, KATIE Is the person blind or does he/she have serious difficulty seeing even when wearing glasses? No 07/11/2024 8:23 AM EDT Shelbie Cedeno RM A Does this person have seriou s difficulty walking or climbing stairs? No 07/11/2024 8:23 AM ED T Shelbie Cedeno RMA Does this person have diffic ulty dressing or bathing? No 07/11/2024 8:23 AM Shelbie Johnson RMA * Is the person deaf or does he/she have serious difficulty hearing? Answer Date of Assessment Author No 07/11/2024 8:23 AM EDT Diane Cedeno RMA * Is the person blind or does he/she have serious difficulty seeing even when wearing glasses? Answer Date of Assessment Author No 07/11/2024 8:23 AM SOUMYAT Diane Cedeno RMA * Does this person have serious difficulty walking or climbing stairs? Answer Date of Assessment Author No 07/11/2024 8:23 AM Diane Johnson RMA * Does this person have difficulty dressing or bathing? Answer Date of Assessment Author No 07/11/2024 8:23 AM Diane Johnson RMA * Because of a physical, mental or emotional condition, does this person have difficulty doing errands alone such as visiting a doctor's office or shopping? Answer Date of Assessment Author No 07/11/2024 8:23 AM Diane Johnson RMA * PHQ-9 Total Score Answer Date of Assessment Author 0 07/11/2024 8:24 AM Diane Johnson RMA * Question Answer Date of Assessment Author Little interest or pleasure in doing things 0 07/11/2024 8:24 AM Shelbie Johnson RMA Feeling down, depressed, or hopeless 0 06/15 8:24 AM Shelbie Johnson RMA PHQ-2 Total Score 0 07/11/2024 8:24 AM Shelbie Johnson RMA * Question Answer Date of Assessment Author Feeling Nervous, Anxious, or on Edge 0 06/15 8:23 AM Shelbie Johnson RMA Not Being Able to Stop or Co ntrol Worrying 0 07/11/2024 8:23 AM Shelbie Johnson RMA Worrying too Much About Diff erent Things 0 07/11/2024 8:23 AM EDT Shelbie Cedeno, RMA Trouble Relaxing 0 07/11/2024 8:23 AM EDT Helena eyeShelbie saucedo, RMA Being so Restless That it is Hard to Sit Still 0 07/11/2024 8:23 AM EDT Wilian Shelbie, RMA Becoming Easily Annoyed or Irritable 0 06/15 8:23 AM EDT Shelbie Cedeno, RMA Feeling Afraid as if Somethi ng Awful Might Happen 0 07/11/2024 8:23 AM EDT Shelbie Cedeno, RMA EDGAR-7 Total Score 0 07/11/2024 8:23 AM EDT Shelbie Cedeno, RMA documented as of this encounter Mental Status * Cognitive and Functional Status Question Answer Entry Date Author Because of a physical, menta l or emotional condition, does this person have difficulty doing errands alone such as visiting a doctor's office or shopping? No 07/11/2024 8:23 AM EDT Shelbie Cedeno, RMA Because of a physical, menta l or emotional condition, does this person have serious difficulty concentrating, remembering or making decisions? No 07/11/2024 8:23 AM EDT Shelbie Miller, RMA * Because of a physical, mental or emotional condition, does this person have serious difficulty concentrating, remembering or making decisions? Answer Entry Date Author No 07/11/2024 8:23 AM EDT Diane Cedeno RMA documented in this encounter Plan of Treatment [...] on filedocumented in this encounter Care Teams Automation Test Developer Relationship Specialty Start Date End Date Oleksandr Mesa MD [address] [place] [address] [place] [phone] PCP - General 10/08/09 documented as of this encounter
--- OUTSIDE RECORDS SUMMARY | 2024-08-01 09:34 | XMS_ITS | Data Portability ---
Author Organization [facility] YAZAN Kovacs [place] [facility] Address [address] [facility] [address] [place] [address] Assessment Encounter Date Assessment Date Assessment LastModified by Organization Details LastModified Time 03/17/2020 03/17/2020 follow up [email or web address] Not available 02/2020 10:00:16 Plan of Treatment Reminders Order Date Submit Date Provider Last Modified By Organization Details Last Modified Time Details Appointments None recorded. Lab surgical pathology study 2020 021 [facility], [address] [place] [address], [phone], 18:25:17 Referral None recorded. Procedures None recorded. Surgeries None recorded. Imaging None recorded. Medication Orders None recorded. Patient TargetsNo targets recorded. Patient Instructions Encounter Date Encounter Id Patient Instructions Last Modified By Organization Details Last Modified Time 03/17/2020 [id number] Education: We discussed the potential diagnostic options, options for further evaluation and treatments, and the risks and benefits of each. [email or web address] Not available 03/17/2020 10:00:10 Reason for Referral None Reported. Results Created Date Observation Date Name Description Value Unit Range Abnormal Flag Note LastModifiedBy Organization Detail LastModifiedTime 03/17/1903/17/2020 surgi sigrid patho logy study surgical SEE BELOW Depar tment of Patho logy Surgi sigrid Patho logy Repor t NAME: JESSENIA WARE PATH. :[id number] Copy to: Diagn osis: A) Left scalp : Cylin droma ; incom plete ly excis ed. B) Left upper foreh ead: Cylin droma ; incom plete ly excis ed. Note: Multi ple cylin droma tous neopl asms may be seen in the famil ial setti ng as a resul t of germl ine mutat ion (i.e. [place] e-Spi egler syndr ome). Clini sigrid corre latio n with possi ble saumya ic couns eling may be indic ated. SOURC E OF SPECI MEN: SKIN BIOPS Y, LEFT SCALP SKIN BIOPS Y, LEFT UPPER FOREH EAD CLINI SIGRID INFOR MATIO N: D 48.5 Gross Descr iptio n: A) Recei nilo in forma mary label ed with the patie nt's name and desig nated as left scalp is a shave biops y of skin (0.7 x 0.6 x 0.2 cm). The epide rmal surfa ce is pink- [place] and edwina y. The briana n is inked blue. The speci men is trise cted and entir lala submi tted in one casse tte. B) Recei nilo in forma mary label ed with the patie nt's name and desig nated as left upper foreh ead is a shave biops y of skin (0.3 x 0.2 x 0.1 cm). The epide rmal surfa ce is [place] and edwina y. The briana n is inked blue. The speci men is entir lala submi tted in one casse tte. MT 03/17 03:48 PM Micro scopi c Descr iptio n: Both submi tted shave biops y speci mens demon strat e basal oid proli ferat ions of tumor cells withi n the dermi s with cylin droma tous diffe renti ation . No overt malig james is seen in eithe r speci men, with the cavea t that the tumor has been trans ected at the base in both biops ies. OWEN RUSSELL M.D. Shital d Out Date: 03/18 18:24 Page 1 of 1 Not Available [facility] [address] [place] [address], [place], [phone], 03/18/2020 18:25:17 Result Notes None recorded. Problems No Known Problems Procedures Surgical History Date Name Laterality Status Provider Name and Address Organization Details Recorded Time Shave Lesion; scalp, neck, hand, foot, genitalia completed BRANDEE MILLER MD [address] [place] [address], [phone], [facility] 03/19/2020 16:37:56 Shave Lesion; face, ear, eyelid, nose, lip, muc memb completed BRANDEE MILLER MD [address] [place] [address], [phone], [facility] 03/19/2020 16:37:28 Imaging Results None recorded. Procedure Notes None recorded. Medical Equipment None Reported. Allergies Allergen ID Allergen Name Allergen Category Reaction Reaction Severity Criticality Documentation Date Start Date Code Code System Note Provider Name and Address Organization Details Recorded Time [id number] Amoxil medicatio n Not available Not available Not available 03/17/202053287 9 RxNorm Verena Duarte [facility] 10:53:20 Medications Name Sig Start Date Stop Date Status Note LastModified by Organization Details LastModified Time amitriptyline active Not Available Not Available Not Available Vitals None Recorded Social History None recorded. Functional Status None recorded. Mental Status None recorded. Family History Nothing Reported. Medical History No medical history recorded. Gynecological HistoryNo gynecological history recorded. 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 scalp 8 mm left upper forehead 3 mm 100 + lesions no changes in years, no hx in siblings, child, parents shave removal and base destroyed with ED to 2 Health Concerns Section Related Observation LastModified by Organization Detai ls LastModified Time None Recorded Concern Status LastModified by Organization Details LastModified Time None Recorded Advance Directives Directive None Recorded Payers Insurance Date Sequence Insurance Name Policy Number Policy Walters Covered Member ID Walters Member ID Guarantor Name 03/17/2020 1 [facility] [id number] Mike Mathews [id number] Jessenia Mathews Notes Date Note Type Note Provider Name and Address Organization Details Recorded Time 03/17/2020 text/html New patient LOCATION: knots in scalp DURATION: x years SYMPTOMS: bigger knot tender TREATMENTS: none patient has no issues with bleeding scarring or healing Denies any other new, changing, or bleeding lesions, or other rashes, feels well , good mood and has no family history of melanoma. BRANDEE MILLER MD [address] [place] [address], [phone], [facility] 03/19/2020 16:38:56 OBGyn Episode No OBEpisode recorded.
== END 2024-08-01 23:59 | disposition home or self-care (01) ==
LOC: RAD 09:29
PROVIDERS: PCP Nurse Practitioner Obstetrics & Gynecology; Visit Provider Nurse Practitioner Obstetrics & Gynecology
DX: N83.02 Follicular cyst of left ovary (principal); R93.89 Abnormal findings on diagnostic imaging of other specified body structures; Z90.710 Acquired absence of both cervix and uterus
CPT/HCPCS: 76830